=== PATIENT | male | born 1965 | race Caucasian/White ===

== ENCOUNTER 2019-04-21 10:06 | Emergency (ER) | payer OTHER ==
--- NOTE | 2019-04-21 10:18 | EDM.PDOC ---
ED HPI GENERAL MEDICAL PROBLEM - General Stated Complaint: UNKNOWN Time Seen by Provider: 04/21/19 10:15 Source of Information: Reports: Patient History Limitations: Reports: No Limitations - History of Present Illness INITIAL COMMENTS - FREE TEXT/NARRATIVE: patient comes emergency Department today with complaints of epigastric chest pain. Since Wednesday he has had a constant tightness sensation in his lower sternum and epigastric area. He feels like his heart is racing on a regular basis. He has been more short of breath. He's never had any syncope weakness dizziness lightheadedness. He has never checked his pulse. Arcing up the stairs he feels his heart very fast and he is short of breath by the time he is at the top of the steps. Has advanced or heartburn. No fever no chills. No cough or congestion. No trauma to his chest. No abdominal pain. No nausea no vomiting. He does have a history of heartburn. No hematuria dysuria or urinary frequency. No black or tarry stools. He's never had pain in his epigastric region or just like this in the past. He does drink anywhere from 4-6 alcoholic drinks 5 days a week. He denies any change in his social history denies any anxiety. - Related Data Allergies Allergy/AdvReac Type Severity Reaction Status Date / Time cephalexin monohydrate Allergy Rash Verified 07/31/14 06:03 [From Keflex] Home Meds: Home Meds . [No Known Home Meds] 07/31/14 [History] ED ROS GENERAL - Review of Systems Review Of Systems: ROS reveals no pertinent complaints other than HPI. ED EXAM, GENERAL - Physical Exam Exam: See Below Exam Limited By: No Limitations General Appearance: Alert, WD/WN, No Apparent Distress Eye Exam: Bilateral Eye: EOMI, Normal Inspection Ears: Normal External Exam, Normal Canal Ear Exam: Bilateral Ear: Canal Normal, TM normal Nose: Normal Inspection, Normal Mucosa Throat/Mouth: Normal Inspection, Normal Lips, Normal Teeth, Normal Oropharynx Head: Atraumatic, Normocephalic Neck: Normal Inspection, Supple Respiratory/Chest: No Respiratory Distress, Lungs Clear, Normal Breath Sounds, No Accessory Muscle Use, Chest Non-Tender Cardiovascular: Normal Peripheral Pulses, Regular Rate, Rhythm, No Edema, No Murmur, No Rub Peripheral Pulses: 2+: Radial (L), Radial (R), Posterior Tibial (L), Posterior Tibial (R), Dorsalis Pedis (L), Dorsalis Pedis (R) GI/Abdominal: Normal Bowel Sounds, Soft, Non-Tender, No Organomegaly, No Distention Back Exam: Normal Inspection, Full Range of Motion Extremities: Normal Inspection, Normal Range of Motion, Non-Tender, Normal Capillary Refill Neurological: Alert, Oriented, Normal Cognition, No Motor/Sensory Deficits Psychiatric: Normal Affect, Normal Mood Skin Exam: Warm, Dry, Intact, Normal Color, No Rash Lymphatic: No Adenopathy EKG INTERPRETATION EKG Date: 04/21/19 Time: 10:13 Rate (Beats/Min): 67 [place]: Normal P-Wave: Present QRS: Normal ST-T: Normal QT: Normal Course - Vital Signs Last Recorded V/S: Last Vital Signs Temp 37.0 C 04/21/19 10:07 Pulse 66 04/21/19 10:07 Resp 19 04/21/19 10:07 BP 149/107 H 04/21/19 10:07 Pulse Ox 96 04/21/19 10:07 - Orders/Labs/Meds Orders: Active Orders 24 hr Category Date Time Status EKG 12 Lead [EKG Documentation Completion] [RC] URGENT Care 04/21/19 10:19 Active Chest 2V [CR] Urgent Exams 04/21/19 10:19 Taken Labs: Laboratory Tests 04/21/19 04/21/19 Range/Units 10:20 10:20 WBC 7.7 (5.0-10.0) 10^3/uL RBC 5.09 (4.6-6.2) 10^6/uL Hgb 15.5 (14.0-18.0) g/dL Hct 42.9 (40.0-54.0) % MCV 84.3 (80-100) fL MCH 30.5 (27.0-34.0) pg MCHC 36.1 H (33.0-35.0) g/dL Plt Count 245 (150-450) 10^3/uL Neut % (Auto) 51.9 (42.2-75.2) % Lymph % (Auto) 36.7 (20.5-50.1) % [place] % (Auto) 9.8 H (2-8) % Eos % (Auto) 1.2 (1.0-3.0) % Baso % (Auto) 0.4 (0.0-1.0) % Sodium 136 (135-145) mmol/L Potassium 4.1 (3.6-5.0) mmol/L Chloride 105 (101-111) mmol/L Carbon Dioxide 23.0 (21.0-31.0) mmol/L Anion Gap 12.1 BUN 24 H (7-18) mg/dL Creatinine 0.9 (0.6-1.3) mg/dL Est Cr Clr Drug Dosing 99.94 mL/min Estimated GFR (MDRD) > 60 BUN/Creatinine Ratio 26.66 Glucose 99 (74-105) mg/dL Calcium 9.5 (8.4-10.2) mg/dl Total Bilirubin 0.8 (0.2-1.0) mg/dL AST 23 (10-42) IU/L ALT 30 (10-60) IU/L Alkaline Phosphatase 46 (42-121) IU/L Troponin I < 0.02 (0.00-0.02) ng/ml Total Protein 7.5 (6.7-8.2) g/dl Albumin 4.4 (3.2-5.5) g/dl Globulin 3.1 Albumin/Globulin Ratio 1.42 Meds: Medications Discontinued Medications Generic Name Dose Route Start Last Admin Trade Name Freq PRN Reason Stop Dose Admin Al Hydroxide/Mg Hydroxide 30 ml 04/21/19 10:19 04/21/19 10:30 Gi Cocktail PO 04/21/19 10:20 30 ml ONETIME ONE Administration Aspirin 324 mg 04/21/19 10:31 04/21/19 10:35 Aspirin PO 04/21/19 10:32 324 mg ONETIME ONE Administration - Re-Assessments/Exams Free Text/Narrative Re-Assessment/Exam: 04/21/19 11:10 chest x-ray EKG and labs are all negative. Following the GI cocktail the patient had complete resolution of the symptomatology. I explained to him this is sequelae of gastroesophageal reflux disease. Use [id number] for acute symptoms and we'll start him on omeprazole. He also should consider talking primary care about getting a Holter monitor if he has continued palpitations. He is comfortable with this plan and his questions are answer Departure - Departure Time of Disposition: 11:11 Disposition: Home, Self-Care 01 Clinical Impression: Non-cardiac chest pain Gastroesophageal reflux disease Qualifiers: Esophagitis presence: esophagitis presence not specified Qualified Code(s): K21.9 - Gastro-esophageal reflux disease without esophagitis Instructions: Nonspecific Chest Pain, [id number], Gastroesophageal Reflux Disease, Adult, [id number] Additional Instructions: Maalox or Mylanta OTC for acute episodes of Chest pain. Omeprazole, 1 capsule daily for the next 28 days. RX given to the patient, #28. If chest pain does not resolve with OTC remedies be seen in ED or urgent care. If continued palpitations or racing heart sensation see PCP about a Holter monitor. Return to the ED if new or worsening symptoms. Follow up with PCP in the next 4-6 days if not improving sooner if worse. - My Orders Last 24 Hours: My Active Orders 04/21/19 10:19 EKG 12 Lead [EKG Documentation Completion] [RC] URGENT Chest 2V [CR] Urgent - Assessment/Plan Last 24 Hours: My Active Orders 04/21/19 10:19 EKG 12 Lead [EKG Documentation Completion] [RC] URGENT Chest 2V [CR] Urgent Assessment:: None cardiac chest pain GERD Plan: Maalox or Mylanta OTC for acute episodes of Chest pain. Omeprazole, 1 capsule daily for the next 28 days. RX given to the patient, #28. If chest pain does not resolve with OTC remedies be seen in ED or urgent care. If continued palpitations or racing heart sensation see PCP about a Holter monitor. Return to the ED if new or worsening symptoms. Follow up with PCP in the next 4-6 days if not improving sooner if worse.
[2019-04-21] MEDS ORDERED: GI Cocktail Oral Solution 30 ML PO ONE (10:19)
[2019-04-21 10:25] VITALS: BP 149/107; PULSE 66
[2019-04-21] MEDS ORDERED: Aspirin 81 MG Tab.Chew PO ONE (10:31)
[2019-04-21 10:52] LABS: ANION GAP 12.1; CHLORIDE,CL 105 mmol/L (101-111); SODIUM,NA 136 mmol/L (135-145)
== END 2019-04-21 11:20 | disposition home or self-care (01) ==
LOC: DL.ED 10:06
DX: K21.9 Gastro-esophageal reflux disease without esophagitis (principal); Z88.1 Allergy status to other antibiotic agents
CPT/HCPCS: 36415; 71046; 80053; 84484; 85025; 93005; 99285; A9270

== ENCOUNTER 2020-09-19 21:41 | Emergency (ER) | payer OTHER ==
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
[2020-09-19] MEDS ORDERED: HYDROmorphone 0.5 MG/0.5 ML Syringe IVPUSH ONE (21:55)
[2020-09-19 22:14] LABS: ANION GAP 19.9 mEq/L (7-13); CHLORIDE,CL 100 mmol/L (98-107); SODIUM,NA 140 mmol/L (136-145)
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
[2020-09-19] MEDS ORDERED: HYDROmorphone 1 MG/ML Syringe IVPUSH ONE (23:23)
== END 2020-09-20 00:11 ==
LOC: DL.ED 21:41
DX: S53.125A Posterior dislocation of left ulnohumeral joint, initial encounter (principal); S80.212A Abrasion, left knee, initial encounter; S90.811A Abrasion, right foot, initial encounter; Z88.1 Allergy status to other antibiotic agents; V29.9XXA Motorcycle rider (driver) (passenger) injured in unspecified traffic accident, initial encounter
CPT/HCPCS: 24600; 36415; 73090; 73130; 73562; 73630; 80053; 84484; 85025; 93005; 96374; 96376; 99284; 99285; J1170

== ENCOUNTER 2020-11-30 19:12 | Emergency (ER) | payer OTHER ==
[2020-11-30 21:31] LABS: ANION GAP 14.8 mEq/L (7-13); CHLORIDE,CL 101 mmol/L (98-107); SODIUM,NA 137 mmol/L (136-145)
--- NOTE | 2020-11-30 22:07 | EDM.PDOC ---
ED HPI GENERAL MEDICAL PROBLEM - General Chief Complaint: Headache Stated Complaint: VERY HIGH BLOOD PRESSURE 200/168 Time Seen by Provider: 11/30/20 21:00 Source of Information: Reports: Patient, RN History Limitations: Reports: No Limitations - History of Present Illness INITIAL COMMENTS - FREE TEXT/NARRATIVE: Roscoe is a 55 y/o male who presents the ED via personal vehicle with complaints of high blood pressure readings on home blood pressure monitor. The patient reports he was examined by his primary care provider [facility] days ago and was sent home with instructions to monitor his blood pressure over the next week to evaluate need for antihypertensive medications. Patient reports several high blood pressure readings today with systolics measuring up to 220 and diastolics measuring in the 110s. The patient denies any fatigue, vision changes, chest pain, chest pressure, palpitations, shortness of breath, or edema of the lower extremities. He does attest to mild, transient headache over the past 3 days which has been alleviated with ibuprofen; the patient denies headache at this time. The patient denies tobacco, alcohol, or recreational drug use. Middle Headache Pain Score (Numeric/FACES): 5 - Related Data Allergies Allergy/AdvReac Type Severity Reaction Status Date / Time cephalexin monohydrate Allergy Rash Verified 11/30/20 19:32 [From Keflex] Home Meds: Home Meds Acetaminophen [Tylenol] 11/30/20 [History] Calcium Carbonate [Calcium] 11/30/20 [History] Cholecalciferol (Vitamin D3) [Vitamin D] 11/30/20 [History] Ibuprofen 200 mg PO 11/30/20 [History] Past Medical History HEENT History: Reports: None Cardiovascular History: Reports: Heart Murmur Respiratory History: Reports: None Gastrointestinal History: Reports: None Genitourinary History: Reports: None Musculoskeletal History: Reports: None Neurological History: Reports: None Psychiatric History: Reports: None Endocrine/Metabolic History: Reports: None Hematologic History: Reports: None Immunologic History: Reports: None Oncologic (Cancer) History: Reports: None Dermatologic History: Reports: None - Infectious Disease History Infectious Disease History: Reports: None Social & Family History - Tobacco Use Tobacco Use Status *Q: Never Tobacco User - Caffeine Use Caffeine Use: Reports: Coffee Other Caffeine Use: "lots of caffeine, coffee" - Alcohol Use Days Per Week of Alcohol Use: 2 Number of Drinks Per Day: 2 Total Drinks Per Week: 4 - Recreational Drug Use Recreational Drug Use: No ED ROS GENERAL - Review of Systems Review Of Systems: Comprehensive ROS is negative, except as noted in HPI. ED EXAM, GENERAL - Physical Exam Exam: See Below Exam Limited By: No Limitations General Appearance: Alert, No Apparent Distress Eye Exam: Bilateral Eye: EOMI, Normal Inspection, PERRL (3mm) Throat/Mouth: Normal Inspection, Normal Oropharynx, Normal Voice, No Airway Compromise Head: Atraumatic, Normocephalic Neck: Normal Inspection, Supple, Non-Tender, Full Range of Motion. No: Lymphadenopathy (L), Lymphadenopathy (R) Respiratory/Chest: No Respiratory Distress, Lungs Clear, Normal Breath Sounds, No Accessory Muscle Use, Chest Non-Tender Cardiovascular: Normal Peripheral Pulses, Regular Rate, Rhythm, No Gallop, No JVD, No Murmur, No Rub. No: No Edema Peripheral Pulses: 2+: Radial (L), Radial (R) GI/Abdominal: Normal Bowel Sounds, Soft, Non-Tender, No Distention, No Abnormal Bruit, No Mass, Pelvis Stable (Male) Exam: Deferred Rectal (Males) Exam: Deferred Back Exam: Normal Inspection, Full Range of Motion Extremities: Normal Range of Motion, Non-Tender, Normal Capillary Refill, Pedal Edema (Trace pitting edema, bilaterally) Neurological: Alert, Oriented, CN II-XII Intact, Normal Cognition, Normal Gait, No Motor/Sensory Deficits Psychiatric: Normal Affect, Normal Mood Skin Exam: Warm, Dry, Intact, Normal Color, No Rash. No: Ecchymosis, Erythema, Jaundice, Mottled, Pallor, Petechiae Course - Vital Signs Last Recorded V/S: Last Vital Signs Temp 98.0 F 11/30/20 19:28 Pulse 80 11/30/20 22:08 Resp 16 11/30/20 22:08 BP 143/78 H 11/30/20 22:08 Pulse Ox 98 11/30/20 22:08 - Orders/Labs/Meds Orders: Active Orders 24 hr Category Date Time Status DRUG SCREEN URINE BIORAD [URCHEM] Urgent Lab 11/30/20 20:51 Ordered UA RFX ANNIE AND CULT IF INDIC [URIN] Stat Lab 11/30/20 20:50 Ordered Labs: Laboratory Tests 05/29/21 05/29/21 Range/Units 21:10 21:10 WBC 8.3 (5.0-10.0) 10^3/uL RBC 5.00 (4.6-6.2) 10^6/uL Hgb 15.6 (14.0-18.0) g/dL Hct 42.1 (40.0-54.0) % MCV 84.2 (80-100) fL MCH 31.2 (27.0-34.0) pg MCHC 37.1 H (33.0-35.0) g/dL Plt Count 247 (150-450) 10^3/uL Neut % (Auto) 47.4 (42.2-75.2) % Lymph % (Auto) 38.0 (20.5-50.1) % Moca % (Auto) 12.5 H (2-8) % Eos % (Auto) 1.6 (1.0-3.0) % Baso % (Auto) 0.5 (0.0-1.0) % Sodium 137 (136-145) mmol/L Potassium 3.8 (3.5-5.1) mmol/L Chloride 101 (98-107) mmol/L Carbon Dioxide 25 (21-32) mmol/L Anion Gap 14.8 H (7-13) mEq/L BUN 20 H (7-18) mg/dL Creatinine 1.04 (0.70-1.30) mg/dL Est Cr Clr Drug Dosing 84.47 mL/min Estimated GFR (MDRD) > 60 BUN/Creatinine Ratio 19.2 (No establ ref range) Glucose 130 H (70-99) mg/dL Calcium 8.2 L (8.5-10.1) mg/dL Magnesium 2.0 (1.8-2.4) mg/dL Total Bilirubin 0.5 (0.2-1.0) mg/dL AST 23 (15-37) U/L ALT 49 (16-63) U/L Alkaline Phosphatase 78 (46-116) U/L C-Reactive Protein < 0.2 (0.0-0.9) mg/dL Total Protein 7.0 (6.4-8.2) g/dL Albumin 3.6 (3.4-5.0) g/dL Globulin 3.4 Albumin/Globulin Ratio 1.06 Ethyl Alcohol < 3 (0) mg/dL - Re-Assessments/Exams Free Text/Narrative Re-Assessment/Exam: 12/01/20 Blood pressure reading since arrival to this facility ranging from 140s-150s systolic. Initial reading 150s/110, however diastolic trending 70s-80s since. CBC unremarkable for acute processes. Kidney function, liver function, and electrolytes appropriate via CMP. Discussed findings of examination and lab work with patient. Reviewed treatment of hypertension in the ED versus treatment of hypertension in the clinic setting and discussed need for follow-up with primary care provider early next week. Patient encouraged to calibrate home blood pressure machine as readings are likely false. Red flag signs and symptoms which would warrant reevaluation reviewed. Patient verbalized understanding and agreement with the plan of care. Departure - Departure Time of Disposition: 22:05 Disposition: Home, Self-Care 01 Condition: Good Clinical Impression: Hypertension Qualifiers: Hypertension type: essential hypertension Qualified Code(s): I10 - Essential (primary) hypertension - Discharge Information *PRESCRIPTION DRUG MONITORING PROGRAM REVIEWED*: Not Applicable *COPY OF PRESCRIPTION DRUG MONITORING REPORT IN PATIENT DEO: Not Applicable Instructions: Hypertension, Adult, Abmj-[facility]-L[facility] Forms: ED Department Discharge Additional Instructions: 1.) Follow up with your primary care provider early this week regarding today's visit. 2.) Drink plenty of water to stay hydrated. 3.) Attempt to calibrate home blood pressure machine prior to use. Sepsis Event Note (ED) - Evaluation Sepsis Screening Result: No Definite Risk - Focused Exam Vital Signs: Vital Signs Temp Pulse Resp BP Pulse Ox 11/30/20 22:08 80 16 143/78 H 98 11/30/20 19:28 98.0 F 92 16 158/114 H 97 - My Orders Last 24 Hours: My Active Orders 11/30/20 20:50 UA RFX ANNIE AND CULT IF INDIC [URIN] Stat 11/30/20 20:51 DRUG SCREEN URINE BIORAD [URCHEM] Urgent - Assessment/Plan Last 24 Hours: My Active Orders 11/30/20 20:50 UA RFX ANNIE AND CULT IF INDIC [URIN] Stat 11/30/20 20:51 DRUG SCREEN URINE BIORAD [URCHEM] Urgent
[2020-11-30 22:09] VITALS: BP 143/78; PULSE 80
== END 2020-11-30 22:14 | disposition home or self-care (01) ==
LOC: DL.ED 19:12
DX: I10 Essential (primary) hypertension (principal); Z88.1 Allergy status to other antibiotic agents
CPT/HCPCS: 36415; 80053; 80307; 83735; 85025; 86140; 99283; 99284